=== PATIENT | female | born 1975 | race Two or more races ===

== ENCOUNTER 2024-07-30 11:20 | Day surgery (SDC) | payer MEDICAID, SELFPAY ==
--- NOTE | 2024-07-29 06:39 | EKG_ITS ---
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
[2024-07-29 12:00] VITALS: BMI 25.6
[2024-07-29 12:37] LABS: Basophils # (Auto) 0.1 Thou/mm3 (0.0-0.2); Basophils % (Auto) 1 % (0-2.5); Eosinophils # (Auto) 0.2 Thou/mm3 (0.0-0.5); Eosinophils % (Auto) 2 % (0-10); Hematocrit 34.3 % (36.0-46.0); Hemoglobin 11.2 g/dL (12.0-16.0); Immature Granulocytes % (Auto) 1 % (0-0); Immature Granulocytes Auto 0.04 Thou/mm3 (0.00-0.00); Lymphocytes # (Auto) 1.7 Thou/mm3 (1.0-4.8); Lymphocytes % (Auto) 19 % (10-50); Mean Corpuscular HGB Conc 32.7 g/dl (31.0-37.0); Mean Corpuscular Hemoglobin 30.5 pg (25.0-35.0); Mean Corpuscular Volume 94 fL (80-100); Monocytes # (Auto) 0.6 Thou/mm3 (0.0-0.8); Monocytes % (Auto) 7 % (0-12); Neutrophils # (Auto) 6.1 Thou/mm3 (1.8-7.7); Neutrophils % (Auto) 71 % (37-80); Nucleated Red Blood Cell % 0 /100 WBC (0); Platelet Count 215 Thou/mm3 (140-440); RDW Standard Deviation 46.5 fL (36.4-46.3); Red Blood Count 3.67 Miln/mm3 (4.00-5.20); White Blood Count 8.7 Thou/mm3 (3.6-11.0)
[2024-07-29 13:13] LABS: Alanine Aminotransferase 11 U/L (10-49); Albumin, Serum 4.6 gm/dL (3.5-5.0); Albumin/Globulin Ratio 1.8 (1.2-2.2); Alkaline Phosphatase 59 U/L (46-116); Anion Gap 9 (7-16); Aspartate Amino Transferase < 8 U/L (0-34); BUN/Creatinine Ratio 14 Ratio (12-20); Bilirubin,Total 0.3 mg/dL (0.3-1.2); Blood Urea Nitrogen 81 mg/dL (9-23); Calcium 10.3 mg/dL (8.3-10.6); Calcium (Corrected) 10.3 mg/dL (8.5-10.1); Chloride 107 mMol/L (98-107); Estimated Creatinine Clearance 9.7 mL/min (>60); Globulin 2.6 gm/dL (2.3-3.5); Glucose 79 mg/dL (74-106); Osmolality,Calculated 299 (275-295); Potassium 5.3 mMol/L (3.4-5.1); Sodium 138 mMol/L (136-145); Total Protein 7.2 gm/dL (5.7-8.2); eGFR 8 See Note
[2024-07-30] VITALS (9 sets, daily range): BP systolic 123–134; BP diastolic 78–90; PULSE 64–80; RESP 12–20; TEMP 36.2–36.9; O2SAT 98–100; BMI 25.6
[2024-07-30] MEDS: SODIUM CHLORIDE 0.9% 500 ML 500 ML 20 ML IV (12:06)
[2024-07-30 12:17] LABS: Potassium 5.2 mMol/L (3.4-5.1)
--- NOTE | 2024-07-30 14:22 | PD.SUROPNT ---
Date of Procedure 07/30/24 Pre Op Diagnosis End-stage renal disease requiring dialysis Post Op Diagnosis End-stage renal disease requiring dialysis Procedure Laparoscopic assisted placement of peritoneal dialysis catheter Findings There was no evidence of pelvic or abdominal adhesions. There were no omentum in the pelvis or lower abdomen Procedure Description Patient brought into the operating room in supine position. After administration of general endotracheal anesthesia, patient's abdomen was prepped and draped in standard surgical manner. An approximately 5 mm incision was made in right upper quadrant and Veress needle was inserted. Pneumoperitoneum was obtained up to 15 mmHg and the Veress needle was removed. A 5 mm trocar was placed and laparoscopic camera was inserted. Under direct visualization a laparoscopic camera a 5 mm trocar was placed in left side of the abdomen, this would be used is the exit site of the catheter. The abdomen was inspected and there were no omentum in patient's pelvis noted. There were no evidence of pelvic or abdominal adhesions. An approximately 3 cm incision was made to the left of the umbilicus and dissection was carried subcutaneous tissue. A 10 mm trocar was placed through this incision and the peritoneal dialysis catheter was placed through this trocar and advanced into patient's pelvis, the trocar was then removed. The curved end of the catheter was positioned in patient's pelvis. Using an Endo closure device a suture was placed around the catheter in suprapubic region to hold the catheter in place and prevent potential displacement of the catheter in the future. The proximal cuff of the catheter was placed posterior to anterior abdominal fascia and a pursestring suture using 0 Ethibond placed around the catheter to hold the catheter in place and prevent leakage of fluid around the catheter site. Using the tunneling device a tunnel was created in subcutaneous soft tissue and the catheter was placed in soft tissue tunnel and brought out of left abdominal trocar site. The distal cuff was placed in soft tissue. The catheter was flushed with heparinized saline, fluid was being flushed and aspirated without difficulty. Pneumoperitoneum was evacuated and trocars removed. The incisions closed 4-0 Monocryl in subcuticular fashion. Instruments, needles and sponge counts were reported to be correct ?2. Patient tolerated the procedure well, was extubated, breathing spontaneously and without difficulty and was transferred to postanesthesia care in stable condition. Anesthesia GETA and local Pathology / specimen None Estimated Blood Loss 5 Condition Stable Disposition PACU Surgeon Dinesh Mon MD Surgical Staff Operation Date: 07/30/24 14:00 <No data on this case meets the specified criteria>
--- NOTE | 2024-07-30 14:30 | SUR.PHASEI ---
1430 Patient arrived to recovery resting comfortably in [facility], oral airway removed upon arrival, drowsy and able to response to verbal prompting, breathing unlabored, vital signs stable, denies pain, dressing intact to left abdomen; peritoneal dialysis catheter in place with dissolvable sutures, dermabond, drain sponge, medipore tape, no bleeding noted, lung sounds clear upon auscultation, bilateral radial pulses present when palpated, report received from [facility] EDOUARD and Dr. Briscoe
[2024-07-30] MEDS: fentaNYL CIT INJ 50 mCg/ML AMP 2ML 25 MCG IV (14:49)
--- NOTE | 2024-07-30 15:50 | SUR.PHASEII ---
5460 patient disconnected from vital signs monitor, dressed in her clothing, awaiting to talk to Dr. Mon regarding discharge instructions as patient has a question and would like it answered prior to discharge from recovery
--- NOTE | 2024-07-30 16:12 | SUR.PHASEII ---
1610 Dr. Mon at bedside with patient, all questions answer by MD patient will proceed with discharge 1612 Patient meets discharge criteria from recovery, awake and alert, breathing unlabored, vital signs stable, per patient her pain is tolerable, dressing intact; no bleeding noted, patient drinking apple juice; denies nausea, patient assisted with dressing into her clothing by her , discharge instructions given to patient and patients with the assistance of the telephone surgical garment inspector Oneil ID# [id number], patient signed discharge instructions. Patient given all her belongings prior to discharge, transported via wheelchair and left in a private vehicle.
== END 2024-07-30 16:12 | disposition home or self-care (01) ==
PROVIDERS: Anesthesiology; PCP Family Medicine; Referring Provider Surgery; Visit Provider Surgery
PROC: 0WHG43Z Insertion of Infusion Device into Peritoneal Cavity, Percutaneous Endoscopic Approach (ICD-10-PCS; CPT 49324; principal; 2024-07-30 13:45)
DX: I12.0 Hypertensive chronic kidney disease with stage 5 chronic kidney disease or end stage renal disease (principal); N18.6 End stage renal disease; Z01.810 Encounter for preprocedural cardiovascular examination
CPT/HCPCS: 49324; 36415; 80053; 84132; 85025; 93005; A4217; A4649; C1750; J0690; J1100; J1643; J2250; J2704; J3010; J3490; J7040; J1644